=== PATIENT | male | born 1960 | race American Indian/Alaskan Native ===

== ENCOUNTER 2018-11-13 21:19 | Emergency (ER) | payer OTHER ==
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
[2018-11-13] MEDS ORDERED: TORADOL IV ONE (22:04)
[2018-11-13] MEDS ORDERED: FLEXERIL PO ONE (22:04)
[2018-11-13] MEDS ORDERED: MORPHINE IV ONE (22:04)
[2018-11-13] MEDS ORDERED: MORPHINE ONE ×2 (22:12)
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
[2018-11-14 00:55] VITALS: BP 107/73
== END 2018-11-14 00:58 | disposition home or self-care (01) ==
LOC: ED 21:19
DX: S43.401A Unspecified sprain of right shoulder joint, initial encounter (principal); S83.91XA Sprain of unspecified site of right knee, initial encounter; S16.1XXA Strain of muscle, fascia and tendon at neck level, initial encounter; S39.012A Strain of muscle, fascia and tendon of lower back, initial encounter; S09.90XA Unspecified injury of head, initial encounter; Z79.899 Other long term (current) drug therapy; V49.49XA Driver injured in collision with other motor vehicles in traffic accident, initial encounter; Y93.89 Activity, other specified; Y92.89 Other specified places as the place of occurrence of the external cause; Y99.8 Other external cause status
CPT/HCPCS: 70450; 72100; 72125; 73030; 73070; 73502; 73562; 96374; 96375; 99284; J1885; J2270